=== PATIENT | male | born 1955 | race Caucasian/White ===

== ENCOUNTER 2021-02-22 10:16 | Emergency (ER) | payer MEDICARE ==
[~2021-02-22 10:16] MED LIST: IBUPROFEN800 MG PO; PERCOCET 5-3251 EACH PO; VOLTAREN EC 7575 MG PO
[2021-02-22 12:05] LABS: HEMOGLOBIN 15.4 gm/dl (14.0-17.5); RED BLOOD COUNT 5.04 M/UL (4.20-5.50); WHITE BLOOD COUNT 5.7 K/UL (4.5-11.0)
[2021-02-22 12:26] LABS: BUN/CREATININE RATIO 23 (0-10)
[2021-02-22] MEDS ORDERED: CYCLOBENZAPRINE10 MG PO (14:03)
== END 2021-02-22 14:15 | disposition home or self-care (01) ==
LOC: ER1 10:16
PROVIDERS: Student in an Organized Health Care Education/Training Program
DX: M54.9 Dorsalgia, unspecified (principal); R91.1 Solitary pulmonary nodule; Z88.5 Allergy status to narcotic agent
CPT/HCPCS: 72131; 80053; 81001; 85025; 99284

== ENCOUNTER → 2021-04-23 | Outpatient (CLI) | payer MEDICARE ==
[~2021-04-23] MED LIST changes: +CYCLOBENZAPRINE10 MG PO
== END ==
LOC: KOH-I 09:26
DX: M54.32 Sciatica, left side (principal); R91.8 Other nonspecific abnormal finding of lung field; R93.89 Abnormal findings on diagnostic imaging of other specified body structures; K80.20 Calculus of gallbladder without cholecystitis without obstruction
CPT/HCPCS: 71250

== ENCOUNTER 2021-12-14 13:06 | Emergency (ER) | payer MEDICARE | END 2021-12-14 14:52 | disposition home or self-care (01) | LOC: ER1 13:06 | DX: M25.461 Effusion, right knee (principal); Z88.2 Allergy status to sulfonamides; X50.9XXA Other and unspecified overexertion or strenuous movements or postures, initial encounter | CPT/HCPCS: 29505; 73564; 99283 ==